=== PATIENT | female | born 1985 | race Caucasian/White ===

== ENCOUNTER 2017-08-11 13:22 | Emergency (ER) | payer OTHER ==
[~2017-08-11] VITALS: Ht 147.3 cm; Wt 65.0 kg
[2017-08-11 13:23] VITALS: BP 137/93; PULSE 84; RESP 20; TEMP 98.3; O2SAT 99
[2017-08-11] MEDS ORDERED: ONDANSETRON HCL 4 MG/2 ML VIAL IV PUSH ONE (14:00)
[2017-08-11] MEDS ORDERED: SODIUM CHLOR 0.9% 1000 ML INJ 1,000 ML IV ONE (14:15)
--- NOTE | 2017-08-11 14:33 | PD ---
HPI Chief Complaint: GI Complaint Time Seen by Provider: 13:42 Travel History International Travel<30 days: No Contact w/Intl Traveler<30days: No Traveled to known affect area: No History of Present Illness HPI Patient is a 31-year-old female at approximately 11 weeks' gestational age presents to emergency department for evaluation of nausea vomiting. She's also states she had some minimal abdominal cramping but no vaginal bleeding or vaginal discharge loss of fluid. She states that she did concede this child through [facility] fertilization. States that there is only one . She is followed by Dr. Marie whom she called who recommended she come to the emergency department to be evaluated for her nausea and vomiting. She's not tried anything prior to arrival. He thinks that she is starting to get hydrated. Symptoms for the past few days, constant. PFSH Past Medical History Medical History: Denies Significant Hx Influenza Vaccination: Yes ?: LMP: JUNE 04 Past Surgical History Appendectomy: Yes Gynecologic Surgery: Yes (l ovary cyst; IVF) Social History Alcohol Use: No Tobacco Use: No Substance Use: No Allergies-Medications (Allergen,Severity, Reaction): Coded Allergies: No Known Allergies (Unverified , 08/11/17) Reported Meds & Prescriptions Reported Meds & Active Scripts Active Zofran Odt (Ondansetron Odt) 4 Mg Tab 4 Mg SL Q6HR PRN Review of Systems Except as stated in HPI: all other systems reviewed are Neg Physical Exam Narrative GENERAL: Well-developed well-nourished no obvious distress SKIN: Focused skin assessment warm/dry. HEAD: Atraumatic. Normocephalic. EYES: Pupils equal and round. No scleral icterus. No injection or drainage. ENT: No nasal bleeding or discharge. Mucous membranes pink and moist. NECK: Trachea midline. No JVD. CARDIOVASCULAR: Regular rate and rhythm. No murmur appreciated. RESPIRATORY: No accessory muscle use. Clear to auscultation. Breath sounds equal bilaterally. GASTROINTESTINAL: Abdomen soft, non-tender, nondistended. Hepatic and splenic margins not palpable. MUSCULOSKELETAL: No obvious deformities. No clubbing. No cyanosis. No edema. NEUROLOGICAL: Awake and alert. No obvious cranial nerve deficits. Motor grossly within normal limits. Normal speech. PSYCHIATRIC: Appropriate mood and affect; insight and judgment normal. Data Data Last Documented VS Vital Signs Date Time Temp Pulse Resp B/P (MAP) Pulse Ox O2 Delivery O2 Flow Rate FiO2 08/11/17 15:52 08/11/17 13:23 98.3 84 20 99 Room Air Orders Orders Urinalysis - C+S If Indicated (08/11/17 13:42) Ed Urine Pregnancytest Poc (08/11/17 13:42) Ed Poc Ultrasound (08/11/17 ) Ondansetron Inj (Zofran Inj) (08/11/17 14:00) Sodium Chlor 0.9% 1000 Ml Inj (Ns 1000 M (08/11/17 14:15) Labs Laboratory Tests Test 08/11/17 14:11 Urine Color YELLOW Urine Turbidity HAZY Urine pH 6.0 Urine Specific Garrett 1.030 Urine Protein 30 mg/dL Urine Glucose (UA) NEG mg/dL Urine Ketones 150 mg/dL Urine Occult Blood NEG Urine Nitrite NEG Urine Bilirubin NEG Urine Urobilinogen LESS THAN 2.0 MG/DL Urine Leukocyte Esterase NEG Urine RBC 11 /hpf Urine WBC 4 /hpf Urine Squamous Epithelial Cells 3 /hpf Urine Calcium Oxalate Crystals MOD /hpf Urine Mucus FEW /lpf Microscopic Urinalysis Comment CULT NOT INDICATED MDM Medical Decision Making Medical Screen Exam Complete: Yes Emergency Medical Condition: Yes Differential Diagnosis Emesis and , hyperemesis gravidarum, acute abdomen unlikely, electro- light abnormality unlikely. Narrative Course Patient is a 31-year-old female presents emergency department for emesis during . After discussion of fear radical risk of cleft palate with the patient she she is agreeable to Zofran challenge, she was given Zofran and was able to tolerate by mouth crackers as well as fluids. Discussed minimal efficacious dose at home, discussed need for follow-up with a primary care physician and Dr. Marie. Discussed return to ED criteria for Procedures Procedure Narrative Bedside ultrasound: Ultrasound views transabdominally of the uterus show a single intrauterine approximately 12 weeks gestational age by biparietal diameter, heart tones to 160s by M-mode. Diagnosis Primary Impression: Nausea & vomiting Qualified Codes: R11.2 - Nausea with vomiting, unspecified Referrals: Brock Marie MD Med/Other Pt SpecificInfo: Prescription(s) given Scripts Ondansetron Odt (Zofran Odt) 4 Mg Tab 4 MG SL Q6HR Y for Nausea/Vomiting, #30 TAB 0 Refills Prov: Ben Campuzano MD 08/11/17 Disposition: 01 DISCHARGE HOME Condition: Stable Ben Campuzano MD Aug 11, 2017 14:33
[2017-08-11 15:12] LABS: BLOOD, URINE NEG (NEG); CALCIUM OXALATE CRYSTALS,URINE MOD /hpf; COMMENT (UR) CULT NOT INDICATED; CULTURE IF INDICATED CULT NOT INDICATED; GLUCOSE,URINE NEG (NEG); KETONE, URINE 150 mg/dL (NEG); MUCUS URINE FEW /lpf (OCC); NITRITE,URINE NEG (NEG); SQUAMOUS EPITHELIAL CELL URINE 3 /hpf (0-5); URINE COLOR YELLOW (YELLW/STRAW)
[2017-08-11] MEDS ORDERED: ZOFR4TAB3 SL (15:22)
== END 2017-08-11 16:03 | disposition home or self-care (01) ==
LOC: NEPD 13:22
DX: O21.0 Mild hyperemesis gravidarum (principal); Z3A.11 11 weeks gestation of pregnancy
CPT/HCPCS: 81001; 84703; 96361; 96374; 99284; J2405; J7030

== ENCOUNTER 2017-11-17 12:23 | Emergency (ER) | payer OTHER ==
[~2017-11-17 12:23] MED LIST: ZOFR4TAB3 SL
--- NOTE | 2017-11-17 14:04 | PD ---
HPI Chief Complaint leaking fluid per vagina Date Seen: Nov 17, 2017 Time Seen: 13:55 Travel History International Travel<30 Days: No Contact w/Intl Traveler<30Days: No Known Affected Area: No History of Present Illness HPI Patient is 32-year-old white female at [address] Davison who presents planning of leakage of fluid per vagina. She has no history of a large gush of fluid but is just noticed a few increased wetness & dampness in her underwear this has persisted. She denies vaginal bleeding or large amount of fluid per vagina. No pain or contractions. heart rate tracing is reactive but also very hard to keep on the monitor at 25 weeks. No contractions seen. Her amnio sure here is negative Weeks Gestation: 25 Para: 0 : 1 History Obstetric History Obstetric History This conceived through IVF Social History Alcohol Use: No Tobacco Use: No Substance Abuse: No Allergies-Medications (Allergen,Severity, Reaction): Coded Allergies: No Known Allergies (Unverified , 08/11/17) Home Meds Active Scripts Ondansetron Odt (Zofran Odt) 4 Mg Tab, 4 MG SL Q6HR Y for Nausea/Vomiting, #30 TAB 0 Refills Prov:Ben Campuzano MD 08/11/17 Review of Systems General / Constitutional: No: Fever, Weight Gain, Chills, Other Eyes: No: Diploplia, Blurred Vision, Visual changes, Pain, Photophobia HENT: No: Headaches, Vertigo, Lightheadedness Cardiovascular: No: Irregular Rhythm, Chest Pain or Discomfort, Palpitations, Tachycardia, Syncope, Varicosities, Edema, Cyanosis Respiratory: No: Cough, Short of Breath, Other Gastrointestinal: No: Nausea, Vomiting, Diarrhea Genitourinary: No: Decreased Urinary Output, Oliguria Musculoskeletal: No: Limited ROM, Weakness, Cramping, Edema, Pain Skin: No Rash, No Itching, No Dryness, No Lumps, No Change in Pigmentation, No Change in Nails, No Alopecia, No Lesions Neurologic: No: Weakness, Dizziness, Syncope, Focal Abnormalities, Coordination Problem, Headache, Slurred Speech, Seizures Psychiatric: No: Depression, Suicidal Ideations, Homicidal Ideation Endocrine: No: Heat Intolerance, Cold Intolerance, Polydipsia, Polyuria, Other Physical Exam Narrative GENERAL: Well-nourished, well-developed patient. SKIN: Warm and dry. HEAD: Normocephalic and atraumatic. EYES: No scleral icterus. No injection or drainage. ENT: No nasal drainage noted. Mucous membranes pink. Airway patent. NECK: Supple, trachea midline. No JVD. CARDIOVASCULAR: Regular rate and rhythm without murmurs, gallops, or rubs. RESPIRATORY: Breath sounds equal bilaterally. No accessory muscle use. BREASTS: Bilateral exam showed no masses , no retractions, no nipple discharge. ABDOMEN/GI: Abdomen soft, non-tender, bowel sounds present, no rebound, no guarding Gravid to [25-] weeks size Fundal Height: 25 GENITOURINARY: External Genitalia: intact and normal in appearance BUS glands: [-] [-] Membranes: [intact amnisure neg] Uterine Contractions: [none-] FHT's: Category: [-1] Baseline: [133-] Reactive: [yes for 25 wks-] Variability: [mod-] Decels: [-0] EXTREMITIES: No cyanosis or edema. BACK: Nontender without obvious deformity. No CVA tenderness. NEUROLOGICAL: Awake and alert. Motor and sensory grossly within normal limits. Five out of 5 muscle strength in all muscle groups. Normal speech. Data Data Labs amnisure neg MDM Interpretation(s) Patient is 32-year-old white female at 25 weeks presents planning a leakage of fluid and minimally per vagina. No bleeding or large amount of fluid. No pain. heart tones are reactive. Patient's amnio sure is negative, so she is not ruptured. Plan Plan patient be discharged home to observation. Should you've and I am situation and if she has a large amount of fluid obviously she needs to return. Otherwise she see her OB provider hopefully this week if not she has a scheduled appointment next week Diagnosis Diagnosis: Primary Impression: No leakage of amniotic fluid into vagina Additional Impression: 25 weeks gestation of Disposition: DISCHARGE HOME Condition: Stable Rm Figueroa II, MD Nov 17, 2017 14:04
== END 2017-11-17 14:25 | disposition home or self-care (01) ==
LOC: HOBED 12:23
DX: O26.892 Other specified pregnancy related conditions, second trimester (principal); Z3A.25 25 weeks gestation of pregnancy
CPT/HCPCS: 84112; 99283

== ENCOUNTER 2018-02-22 05:08 | Inpatient (IN) | payer OTHER ==
--- NOTE | 2018-02-19 10:40 | MH ---
cc: Brock Marie MD DATE OF ADMISSION: 02/22/2018 REASON FOR ADMISSION: The patient is admitted for elective section at term. HISTORY: The patient is a 32-year-old female, 1, para 0. Patient's conception was by in vitro fertilization by Dr. Vik Vargas. The patient's estimated date of confinement is 02/27/2018. Patient's obstetrical course is unremarkable. The patient is 4 feet 11 inches. Estimated weight is in excess of 8.5 pounds. The patient's pelvis is android and pelvimetry assessment. Recommendation is to proceed with elective section. The patient's obstetric course is unremarkable. Group B strep status is negative. Blood type is A positive. There is no other significant history in her care. PAST MEDICAL HISTORY: Noncontributory. She denies any systemic or chronic disease states. ALLERGIES: NO KNOWN DRUG ALLERGIES. CURRENT MEDICATIONS: Include Zantac 75 once a day, vitamins as needed. PHYSICAL EXAMINATION: GENERAL: The patient is well-appearing, well-nourished female in no acute distress. VITAL SIGNS: Stable. Blood pressure is 118/80. HEENT: Shows no adenopathy or thyromegaly. NECK: Supple. Full range of motion. Pupils are equally round and reactive to light. Sclerae are clear. LUNGS: Clear in all chambers. CARDIAC: Regular rate and rhythm. No murmur, rub or gallop. ABDOMEN: Gravid, full-term, fundal height is 42 cm, vertex presentation. EXTREMITIES: Symmetrical, full range of motion. There is no cyanosis, clubbing, or edema. NEUROLOGIC: Exam is grossly intact, nonfocal. ASSESSMENT AND PLAN: The patient with a 39+ week intrauterine gestation conception by IVF, cephalopelvic disproportion, macrosomic infant with a maternal android pelvis. Group B strep status is negative. Brock Marie MD SJC/DL , 10:21 AM , 10:39 AM
[~2018-02-22] VITALS: Ht 149.9 cm; Wt 79.0 kg
[2018-02-22] VITALS (13 sets, daily range): BP systolic 117–136; BP diastolic 59–88; PULSE 17–101; RESP 16–20; TEMP 97.5–98.3; O2SAT 99–100
[2018-02-22] MEDS ORDERED: LACTATED RINGER'S 1000 ML IV ONE (05:30)
[2018-02-22] MEDS ORDERED: CITRIC ACID-SODIUM CITRATE LIQ 30 ML UDC PO SCH (05:30)
[2018-02-22] MEDS ORDERED: LACTATED RINGER'S 1000 ML IV SCH (05:30)
[2018-02-22] MEDS ORDERED: ZANT150T2 PO (05:56)
[2018-02-22] MEDS ORDERED: ACYC400T PO (05:56)
[2018-02-22] MEDS ORDERED: PREN29TA PO (05:56)
[2018-02-22] MEDS ORDERED: CEFAZOLIN INJ 2,000 MG in SODIUM CHLORIDE 0.9% INJ 100 ML IV PRN (06:15)
[2018-02-22 06:19] LABS: AUTOMATED NEUTROPHIL # 7.2 TH/MM3 (1.8-7.7); BASOPHIL % 0.2 % (0.0-2.0); EOSINOPHIL # 0.2 TH/MM3 (0-0.4); EOSINOPHIL % 1.9 % (0.0-4.0); HEMATOCRIT 34.4 % (35.0-46.0); HEMOGLOBIN 10.9 GM/DL (11.6-15.3); LYMPH % 19.3 % (9.0-44.0); LYMPHOCYTE # 1.9 TH/MM3 (1.0-4.8); MEAN CELL VOLUME 70.9 FL (80.0-100.0); MEAN CORPUSCULAR HEMOGLOBIN 22.4 PG (27.0-34.0); MEAN CORPUSCULAR HGB CONC 31.6 % (32.0-36.0); MEAN PLATELET VOLUME 8.9 FL (7.0-11.0); MONO % 6.4 % (0.0-8.0); MONOCYTE # 0.6 TH/MM3 (0-0.9); NEUT % 72.2 % (16.0-70.0); PLATELET COUNT 284 TH/MM3 (150-450); RED BLOOD COUNT 4.86 MIL/MM3 (4.00-5.30); RED CELL DISTRIBUTION WIDTH 18.5 % (11.6-17.2)
[2018-02-22 06:23] LABS: BACTERIA, URINE OCC /hpf; BILIRUBIN, URINE NEG (NEG); BLOOD, URINE NEG (NEG); GLUCOSE,URINE NEG (NEG); KETONE, URINE NEG (NEG); NITRITE,URINE NEG (NEG); PH, URINE 6.5 (5.0-8.5); SQUAMOUS EPITHELIAL CELL URINE 12 /hpf (0-5); URINE COLOR YELLOW (YELLW/STRAW); URINE LEUKOCYTE ESTERASE NEG (NEG)
[2018-02-22] MEDS ORDERED: MORPHINE SULFATE PF 5 MG/10 ML VIAL ONE (07:25)
[2018-02-22] MEDS ORDERED: ACETAMINOPHEN 1000 MG/100 ML 100 ML IV ONE (07:26)
[2018-02-22] MEDS ORDERED: ONDANSETRON HCL 4 MG/2 ML VIAL IV PUSH PRN (07:30)
[2018-02-22] MEDS ORDERED: SIMETHICONE 80 MG CHEWABLE TAB PO PRN (07:30)
[2018-02-22] MEDS ORDERED: oxyCODONE/ACETAMINOPHEN 5 MG/325 MG TAB PO PRN (07:30)
[2018-02-22] MEDS ORDERED: SODIUM CHLORIDE 0.9% FLUSH 10 ML FLUSH IV FLUSH PRN (07:30)
[2018-02-22] MEDS ORDERED: KETOROLAC TROMETHAMINE 60 MG/2 ML (IM) VIAL IM PRN (07:30)
[2018-02-22] MEDS ORDERED: OXYTOCIN 30 UNITS-500ML PREMIX 500 ML IV ONE (08:30)
--- NOTE | 2018-02-22 08:47 | PD.OB.DELI ---
Procedure Note Section Procedure Performed by Brock Marie Procedure: Primary Low Transverse Sec Indication for delivery: Other (CPD) Informed consent obtained: For anesthesia, For procedure Confirmed correct: Patient, Procedure, Site, Time-out taken Anesthesia: Spinal Medication prior to procedure: As documented in eMAR Monitoring during procedure: Blood pressure monitoring, hospital monitor, doppler, Pulse oximetry Urinary catheter: Inserted using sterile technique, To dependent drainage Sterile preparation: Duraprep, In usual fashion Position: Supine with wedge to right side, Supine with safety belt applied Operative Features Skin Incision: Pfannenstiel Uterine Incision: Low transverse w/knife / scissors Membranes Ruptured: Artificially Presentation: Occiput anterior Delivery date: Feb 22, 2018 Delivery time: 08:00 Delivery of : Assisted (Vacuum x 1) : Female One Minute : 7 Five Minute : 8 Weight: 7/14 Status of : Viable Placenta delivered: Intact, Abnormalities (placenta VASA previa) Estimated blood loss: 750cc Procedure tolerated: Well Maternal Condition: Stable Condition: Stable Brock Marie MD Feb 22, 2018 08:47
[2018-02-22] MEDS: SODIUM CHLORIDE 0.9% FLUSH 10 ML FLUSH IV FLUSH SCH (09:00)
[2018-02-22] MEDS ORDERED: OXYTOCIN 30 UNITS-500ML PREMIX 500 ML ONE (09:32)
--- NOTE | 2018-02-22 09:38 | MP ---
cc: Brock Marie MD DATE OF OPERATION: 02/22/2018 DATE OF : 1985 DATE OF PROCEDURE: 02/22/2018. PREOPERATIVE DIAGNOSES: 1. Term intrauterine gestation. 2. Conception by IVF. 3. Maternal- cephalopelvic disproportion. PROCEDURE PERFORMED: Primary low transverse section, delivery of female infant. POSTOPERATIVE DIAGNOSES: 1. Term intrauterine gestation. 2. Conception by IVF. 3. Maternal- cephalopelvic disproportion. 4. Presence of vasa praevia noted on the placenta and umbilical cord and membranes. ANESTHESIA: Spinal. ESTIMATED BLOOD LOSS: 750 mL. DRAINS: Kelly to gravity. OPERATIVE FINDINGS: Female infant delivered from LOT position. Vasa praevia was noted with vessels and membranes just below the hysterotomy incision. Baby's Apgars were 7 at 1 minute and 8 at 5. Baby weighed 7 pounds 14 ounces. INDICATIONS FOR PROCEDURE: The patient presented at term. Estimated weight was 8+ pounds. Mother is 4 feet 11 inches. Clinical pelvimetry was concerning for disproportionate assessment with a large baby with a very marginal pelvis. The patient elected for section versus trial of labor. The patient's antibiotic, she received Ancef IV prophylactically. PROCEDURE DESCRIPTION: The patient was taken to the operating room in stable condition. underwent spinal anesthetic without complication. Good result was noted. She was stable throughout and heart rate tracing was normal. She was prepped and draped and a timeout was conducted and agreed by all present in the room. She had a Kelly catheter previously inserted by sterile technique draining clear urine and she had sequentials placed on the lower extremities for VTE prophylaxis. A Pfannenstiel incision was utilized. It was carried through the skin, down through subcutaneous layer to the fascia which was scored and cleaned from the subcutaneous tissue. The fascia was then opened sharply laterally, dissecting away from the rectus muscle. Muscle was in the midline. Peritoneum was identified and opened sharply. A transverse incision was made in the lower uterine segment. After opening the peritoneal surface, entry into the uterine cavity was immediately met with presence of the vasa praevia. The vessels were lateral to the patient's left side. The 's vertex was then brought through the incision with the aid of a vacuum extractor quickly and without difficulty. The infant was delivered to the operative field. The cord was doubly clamped and cut and then the infant was taken to [place] by the nursery staff present for the delivery. Cord sample was obtained for typing. The placenta was then removed intact and examined with evidence of a vasa praevia. The uterus was explored. There was no retained tissue and then the closure was made with a double layer using 0 Monocryl. First layer was a running locking suture, followed by a second imbricating suture. The pelvis was dried and irrigated and examination revealed no hematoma, no active bleeding. Full count was made and correct. Uterus and adnexa were normal. The peritoneum was then closed with a running suture of 2-0 Monocryl. The muscle bellies reapproximated with interrupted mattress suture of 2-0 Monocryl, and then the fascia was closed with 0 Vicryl in a simple running fashion with good result. The subcutaneous space was irrigated, observed for any active bleeding. Any active bleeding was cauterized using the Bovie and the space was reapproximated and closed with a running suture of 2-0 Monocryl. [place] were used just to reapproximate the skin edge and dressing was applied. The final count was correct. The patient was stable. The infant was doing well in the recovery room with the father. MD WINDY Warren/FELISA , 08:52 AM , 09:38 AM
[2018-02-22] MEDS ORDERED: METHYLERGONOVINE MALEATE 0.2 MG/ML VIAL ONE (10:22)
[2018-02-22] MEDS ORDERED: MORPHINE SULFATE 2 MG/ML SYRINGE ONE (10:22)
[2018-02-22] MEDS ORDERED: METHYLERGONOVINE MALEATE 0.2 MG/ML VIAL IM ONE (11:45)
[2018-02-22] MEDS ORDERED: MORPHINE SULFATE 4 MG/ML INJ IV ONE (11:45)
[2018-02-22] MEDS ORDERED: ONDANSETRON HCL 4 MG/2 ML VIAL IV ONE (12:00)
[2018-02-22] MEDS ORDERED: DEXAMETHASONE SOD PHOS 4 MG/ML VIAL IV ONE (12:00)
[2018-02-22] MEDS ORDERED: PHENYLEPH/NS 1000 MCG/10 ML SYR IV ONE (12:00)
[2018-02-22] MEDS ORDERED: OXYTOCIN 10 UNIT/ML AMP IV ONE (12:00)
[2018-02-22] MEDS ORDERED: LACTATED RINGER'S 1000 ML INJ 1,000 ML IV SCH (12:30)
[2018-02-22] MEDS: IBUPROFEN 600 MG TAB PO PRN ×2 (16:20→22:02)
[2018-02-22] MEDS ORDERED: OXYTOCIN 30 UNITS-500ML PREMIX 500 ML IV PRN (17:30)
[2018-02-22] MEDS: DOCUSATE SODIUM 50 MG/SENNA 8.6 MG TAB PO PRN (22:02)
[2018-02-23] MEDS: oxyCODONE/ACETAMINOPHEN 5 MG/325 MG TAB PO PRN ×2 (02:11→07:06)
[2018-02-23 05:53] LABS: AUTOMATED NEUTROPHIL # 10.5 TH/MM3 (1.8-7.7); BASOPHIL % 0.1 % (0.0-2.0); EOSINOPHIL # 0.1 TH/MM3 (0-0.4); EOSINOPHIL % 0.5 % (0.0-4.0); HEMATOCRIT 25.4 % (35.0-46.0); HEMOGLOBIN 8.2 GM/DL (11.6-15.3); LYMPH % 20.2 % (9.0-44.0); MEAN CELL VOLUME 71.6 FL (80.0-100.0); MEAN CORPUSCULAR HGB CONC 32.2 % (32.0-36.0); MEAN PLATELET VOLUME 8.6 FL (7.0-11.0); MONO % 8.4 % (0.0-8.0); MONOCYTE # 1.2 TH/MM3 (0-0.9); NEUT % 70.8 % (16.0-70.0); PLATELET COUNT 240 TH/MM3 (150-450); RED BLOOD COUNT 3.54 MIL/MM3 (4.00-5.30); RED CELL DISTRIBUTION WIDTH 18.1 % (11.6-17.2); WHITE BLOOD COUNT 14.9 TH/MM3 (4.0-11.0)
[2018-02-23] MEDS: IBUPROFEN 600 MG TAB PO PRN ×3 (07:05→22:09)
[2018-02-23 07:35] VITALS: BP 107/70; PULSE 71; RESP 20; TEMP 97.9; O2SAT 99
--- NOTE | 2018-02-23 08:13 | HHI.OB ---
Subjective Post Operative Day: 1 Remarks Doing well 5/10 pain and discussed expectations concerned about latching passing gas Objective Vitals/I&O Vital Signs Date Time Temp Pulse Resp B/P (MAP) Pulse Ox O2 Delivery O2 Flow Rate FiO2 02/22/18 16:17 97.5 77 18 02/22/18 16:17 124/75 (91) 02/22/18 11:49 126/85 (99) 02/22/18 11:49 97.5 86 18 02/22/18 10:45 136/73 (94) 02/22/18 10:30 83 17 134/59 (84) 100 02/22/18 10:15 100 02/22/18 10:15 79 17 130/62 (84) 02/22/18 09:48 126/79 (95) 02/22/18 09:47 98 16 99 02/22/18 09:36 17 100 02/22/18 09:36 17 126/88 (101) 02/22/18 09:36 82 02/22/18 09:17 17 99 02/22/18 09:17 86 134/60 (84) 02/22/18 09:02 98.3 97 20 132/59 (83) 100 02/22/18 09:00 94 16 117/60 (79) 100 02/22/18 08:48 125/64 (84) 100 02/22/18 08:48 96 Result Diagram: 02/23/18 0521 Objective Remarks GENERAL: Well-nourished, well-developed patient. CARDIOVASCULAR: Regular rate and rhythm without murmurs, gallops, or rubs. RESPIRATORY: Breath sounds equal bilaterally. No accessory muscle use. ABDOMEN/GI: Abdomen soft, non-tender, bowel sounds present. Incision: Clean, dry and intact. Fundus: Firm, non-tender at umbilicus. GENITOURINARY: Light to moderate bleeding. EXTREMITIES: No cyanosis or edema, non-tender, without signs of DVT. Medications and IVs Current Medications Medications (Trade) Dose Ordered Sig/Hernandez Route Start Time Stop Time Status Last Admin (Bicitra Liq) 30 ml TOURIST CABIN KEEPER PO 02/22/18 05:30 02/25/18 05:29 02/22/18 07:19 Lactated Ringer's 1,000 ml @ 100 mls/hr Q10H IV 02/22/18 12:30 02/23/18 08:29 Oxytocin 500 ml @ 100 mls/hr UNSCH X1 PRN IV 02/22/18 17:30 02/23/18 17:29 02/22/18 12:00 (NS Flush) 2 ml BID IV FLUSH 02/22/18 09:00 (NS Flush) 2 ml UNSCH PRN IV FLUSH 02/22/18 07:30 (Mylicon Chew) 80 mg QID PRN PO 02/22/18 07:30 (Tylenol) 650 mg Q6H PRN PO 02/22/18 07:30 (Motrin) 600 mg Q6H PRN PO 02/22/18 07:30 02/23/18 07:05 (Percocet 5-325 Mg) 1 tab Q4H PRN PO 02/22/18 07:30 02/23/18 07:06 (Percocet 5-325 Mg) 2 tab Q4H PRN PO 02/22/18 07:30 (Diann-Colace) 2 tab Q12H PRN PO 02/22/18 07:30 02/22/18 22:02 (M-M-R Ii Inj) 0.5 ml ONCE ONCE SQ 02/23/18 16:00 02/23/18 16:01 (Boostrix Inj) 0.5 ml ONCE ONCE IM 02/23/18 16:00 02/23/18 16:01 (Zofran Inj) 4 mg Q6H PRN IV PUSH 02/22/18 07:30 Assessment/Plan Assessment and Plan POD 1 post section vasa previa mom quite anemic will give venofir and recheck H & H in am Federica Saez MD Feb 23, 2018 08:13
[2018-02-23] MEDS ORDERED: IRON SUCROSE INJ 200 MG in SODIUM CHLORIDE 0.9% INJ 100 ML IV SCH (09:00)
[2018-02-23] MEDS ORDERED: methylPREDNISolone SOD SUCC 125 MG/2 ML VIAL IV ONE (09:30)
[2018-02-23] MEDS ORDERED: IRON SUCROSE INJ 200 MG in SODIUM CHLORIDE 0.9% INJ 100 ML IV ONE (11:00)
[2018-02-23] MEDS: ACETAMINOPHEN 325 MG TAB PO PRN ×2 (11:30→17:22)
[2018-02-23] MEDS: DOCUSATE SODIUM 50 MG/SENNA 8.6 MG TAB PO PRN (11:30)
[2018-02-23] MEDS ORDERED: DIPHTH/TETANUS/ACEL PERTUSSIS (BOOSTER) 0.5 ML VIAL/PFS IM ONE (16:00)
[2018-02-23] MEDS ORDERED: MEASLES, MUMPS, RUBELLA VACCINE 0.5 ML VIAL SQ ONE (16:00)
[2018-02-23 20:36] VITALS: BP 126/74; PULSE 86; RESP 18; TEMP 98.6
[2018-02-23] MEDS: SODIUM CHLORIDE 0.9% FLUSH 10 ML FLUSH IV FLUSH SCH (22:10)
[2018-02-24] MEDS: ACETAMINOPHEN 325 MG TAB PO PRN (03:26)
[2018-02-24] MEDS: IBUPROFEN 600 MG TAB PO PRN ×3 (05:44→18:36)
[2018-02-24 06:02] LABS: AUTOMATED NEUTROPHIL # 12.3 TH/MM3 (1.8-7.7); BASOPHIL % 0.2 % (0.0-2.0); EOSINOPHIL % 0.2 % (0.0-4.0); HEMATOCRIT 25.1 % (35.0-46.0); HEMOGLOBIN 8.1 GM/DL (11.6-15.3); LYMPHOCYTE # 2.8 TH/MM3 (1.0-4.8); MEAN CELL VOLUME 71.1 FL (80.0-100.0); MEAN CORPUSCULAR HEMOGLOBIN 22.9 PG (27.0-34.0); MEAN CORPUSCULAR HGB CONC 32.2 % (32.0-36.0); MEAN PLATELET VOLUME 8.4 FL (7.0-11.0); MONO % 7.9 % (0.0-8.0); MONOCYTE # 1.3 TH/MM3 (0-0.9); NEUT % 74.7 % (16.0-70.0); PLATELET COUNT 307 TH/MM3 (150-450); RED BLOOD COUNT 3.54 MIL/MM3 (4.00-5.30); RED CELL DISTRIBUTION WIDTH 18.4 % (11.6-17.2); WHITE BLOOD COUNT 16.5 TH/MM3 (4.0-11.0)
[2018-02-24] MEDS: DOCUSATE SODIUM 50 MG/SENNA 8.6 MG TAB PO PRN (06:46)
[2018-02-24] MEDS: oxyCODONE/ACETAMINOPHEN 5 MG/325 MG TAB PO PRN ×3 (06:46→18:36)
[2018-02-24 08:00] VITALS: BP 110/74; PULSE 92; RESP 20; TEMP 98; O2SAT 98
[2018-02-24] MEDS: SODIUM CHLORIDE 0.9% FLUSH 10 ML FLUSH IV FLUSH SCH (09:00)
--- NOTE | 2018-02-24 12:05 | HHI.OB ---
Subjective Post Operative Day: 2 Remarks POD#2; Stable, attempting to BF, poor latching, Mom is pumping Objective Vitals/I&O Vital Signs Date Time Temp Pulse Resp B/P (MAP) Pulse Ox O2 Delivery O2 Flow Rate FiO2 02/24/18 08:00 98.0 92 20 110/74 (86) 98 02/23/18 20:36 98.6 86 18 126/74 (91) Result Diagram: 02/24/18 0521 Objective Remarks GENERAL: Well-nourished, well-developed patient. CARDIOVASCULAR: Regular rate and rhythm without murmurs, gallops, or rubs. RESPIRATORY: Breath sounds equal bilaterally. No accessory muscle use. ABDOMEN/GI: Abdomen soft, non-tender, bowel sounds present. Incision: Clean, dry and intact. Fundus: Firm, non-tender at umbilicus. GENITOURINARY: Light to moderate bleeding. EXTREMITIES: No cyanosis or edema, non-tender, without signs of DVT. Medications and IVs Current Medications Medications (Trade) Dose Ordered Sig/Hernandez Route Start Time Stop Time Status Last Admin (Bicitra Liq) 30 ml BIOLOGY TEACHER PO 02/22/18 05:30 02/25/18 05:29 02/22/18 07:19 (NS Flush) 2 ml BID IV FLUSH 02/22/18 09:00 02/23/18 22:10 (NS Flush) 2 ml UNSCH PRN IV FLUSH 02/22/18 07:30 (Mylicon Chew) 80 mg QID PRN PO 02/22/18 07:30 (Tylenol) 650 mg Q6H PRN PO 02/22/18 07:30 02/24/18 03:26 (Motrin) 600 mg Q6H PRN PO 02/22/18 07:30 02/24/18 05:44 (Percocet 5-325 Mg) 1 tab Q4H PRN PO 02/22/18 07:30 02/24/18 06:46 (Percocet 5-325 Mg) 2 tab Q4H PRN PO 02/22/18 07:30 (Diann-Colace) 2 tab Q12H PRN PO 02/22/18 07:30 02/24/18 06:46 (Zofran Inj) 4 mg Q6H PRN IV PUSH 02/22/18 07:30 Assessment/Plan Assessment and Plan POD 2 post section vasa previa H+h stable. anticipate discharge for tomorrow. Discharge Planning does not meet criteria Brock Marie MD Feb 24, 2018 12:05
[2018-02-24] MEDS ORDERED: OXYC1TAB63 PO (12:07)
--- NOTE | 2018-02-24 12:10 | HHI.DS ---
Admission Date Feb 22, 2018 at 05:08 Admitting Diagnosis Diagnosis: Delivery Date: Feb 22, 2018 : Primary : Female Pt Condition on Discharge: Good Discharge Disposition: Discharge Home Discharge Instructions Diet Instructions: As Tolerated, No Restrictions Activities You Can Perform: Shower Only-No Bath Activities to Avoid: Prolonged Standing, Strenuous Activity, Driving, Sexual Activity Brock Marie MD Feb 24, 2018 12:10
[2018-02-24 21:05] VITALS: BP 124/77; PULSE 93; RESP 19; TEMP 98.5
[2018-02-25] MEDS: IBUPROFEN 600 MG TAB PO PRN (00:41)
[2018-02-25] MEDS: oxyCODONE/ACETAMINOPHEN 5 MG/325 MG TAB PO PRN (06:00)
--- NOTE | 2018-02-25 09:56 | HHI.OB ---
Subjective Post Operative Day: 3 Remarks doing well, ready for d/c home, TPO no n/v, VB < mesnes, pain controlled. Objective Vitals/I&O Vital Signs Date Time Temp Pulse Resp B/P (MAP) Pulse Ox O2 Delivery O2 Flow Rate FiO2 02/24/18 21:05 98.5 93 19 124/77 (93) Result Diagram: 02/24/18 0521 Objective Remarks GENERAL: Well-nourished, well-developed patient. CARDIOVASCULAR: Regular rate and rhythm without murmurs, gallops, or rubs. RESPIRATORY: Breath sounds equal bilaterally. No accessory muscle use. ABDOMEN/GI: Abdomen soft, non-tender, bowel sounds present. Incision: Clean, dry and intact. Fundus: Firm, non-tender at umbilicus. GENITOURINARY: Light to moderate bleeding. EXTREMITIES: No cyanosis or edema, non-tender, without signs of DVT. Medications and IVs Current Medications Medications (Trade) Dose Ordered Sig/Hernandez Route Start Time Stop Time Status Last Admin (NS Flush) 2 ml BID IV FLUSH 02/22/18 09:00 02/23/18 22:10 (NS Flush) 2 ml UNSCH PRN IV FLUSH 02/22/18 07:30 (Mylicon Chew) 80 mg QID PRN PO 02/22/18 07:30 (Tylenol) 650 mg Q6H PRN PO 02/22/18 07:30 02/24/18 03:26 (Motrin) 600 mg Q6H PRN PO 02/22/18 07:30 02/25/18 00:41 (Percocet 5-325 Mg) 1 tab Q4H PRN PO 02/22/18 07:30 02/25/18 06:00 (Percocet 5-325 Mg) 2 tab Q4H PRN PO 02/22/18 07:30 (Diann-Colace) 2 tab Q12H PRN PO 02/22/18 07:30 02/24/18 06:46 (Zofran Inj) 4 mg Q6H PRN IV PUSH 02/22/18 07:30 Assessment/Plan Assessment and Plan 32 yo s/p scheduled PLTCS at 39w 1. POD #3: meeting milestones, ready for d/c home, discussed precautions , expectations, and restrictions. 2. Anemia: Hb stable, continue Fe. Cosmo Oates MD Feb 25, 2018 09:56
== END 2018-02-25 10:22 | disposition home or self-care (01) | DRG 766 ==
LOC: H2EB 05:08 → H1EA 11:12
PROVIDERS: ADMIT Obstetrics & Gynecology; ATTEND Obstetrics & Gynecology
PROC: 10D00Z1 Extraction of Products of Conception, Low, Open Approach (ICD-10-PCS; principal; 2018-02-22)
DX: O33.9 Maternal care for disproportion, unspecified (principal); O99.02 Anemia complicating childbirth; O36.60X0 Maternal care for excessive fetal growth, unspecified trimester, not applicable or unspecified; Z37.0 Single live birth; Z3A.39 39 weeks gestation of pregnancy; O69.4XX0 Labor and delivery complicated by vasa previa, not applicable or unspecified
CPT/HCPCS: 59025; 80307; 81001; 85025; 86850; 86900; 86901; J0131; J0690; J1100; J1756; J2210; J2270; J2274; J2370; J2405; J2590; J2930; J7120